=== PATIENT | male | born 1960 | race Caucasian/White ===

== ENCOUNTER 2018-12-08 20:32 | Emergency (ER) | payer SELFPAY ==
[2018-12-08] MEDS ORDERED: Albuterol 0.5% CONC NEB.SOL* 5 MG/ML 20 ml BOT INH ONE ×2 (20:41→22:42)
[2018-12-08] MEDS ORDERED: methylPREDNISolone 125 MG* 2 ML VIAL IV ONE (20:41)
[2018-12-08] MEDS ORDERED: Albuterol 0.5% CONC NEB.SOL* 5 MG/ML 20 ml BOT ONE (20:43)
--- NOTE | 2018-12-08 20:47 | ED ---
Shortness of Breath - HPI Summary HPI Summary: A 58 y/o male presents to [facility] with a chief complaint of SOB. The patient has a Hx of COPD and has been using a nebulizer, but he reports that past three days it has not helped alleviate his symptoms. He reports a nonproductive cough and denies fever. Pt is a smoker who is trying to quit, reporting that he smoked 2 or 3 cigarettes this week. He is from [place] and has been visiting a friend in [place] this week. He is on albuterol. - History of Current Complaint Chief Complaint: EDShortnessOfBreath Time Seen by Provider: 12/08/18 20:38 Hx Obtained From: Patient Onset/Duration: Sudden Onset, Lasting Days, Still Present Timing: Constant Current Severity: Mild Dyspnea At: Rest Aggrevating Factors: Nothing Alleviating Factors: Nothing Associated Signs & Symptoms: Negative - fever, Cough (Nonproductive) - Allergy/Home Medications Allergies/Adverse Reactions: Allergies Allergy/AdvReac Type Severity Reaction Status Date / Time codeine Allergy Hives Verified 12/08/18 20:43 Home Medications: Home Medications Albuterol/Ipratropium NEB.MICA* [Duoneb (Albuterol 2.5 MG/Ipratropium 0.5 MG)] 1 neb INH Q4H PRN 12/08/18 [History Confirmed 12/08/18] PMH/Surg Hx/FS Hx/Imm Hx Respiratory History: Reports: Hx Chronic Obstructive Pulmonary Disease (COPD) Infectious Disease History: No Infectious Disease History: Denies: Traveled Outside the US in Last 30 Days - Family History Known Family History: Negative: Blood Disorder - Social History Alcohol Use: None Hx Substance Use: No Substance Use Type: Reports: None Hx Tobacco Use: Yes Smoking Status (MU): Current Every Day Smoker Review of Systems Negative: Fever Positive: Shortness Of Breath, Cough All Other Systems Reviewed And Are Negative: Yes Physical Exam - Summary Physical Exam Summary: Appearance: Well-appearing, slender male sitting forward in mild respiratory distress. Skin: Warm, dry, no obvious rash Eyes: sclera anicteric, no conjunctival pallor ENT: mucous membranes moist, pharynx appears normal Neck: Supple, nontender Respiratory: Diffuse expiratory wheezing with markedly diminished aeration Cardiovascular: Normal S1, S2. No murmurs. Normal distal pulses in tibial and radial bilaterally. Abdomen: Soft, nontender, normal active bowel sounds present Musculoskeletal: Normal, Strength/ROM Intact Neurological: A&Ox3, awake and alert, mentation is normal, speech is fluent and appropriate Psychiatric: affect is normal, does not appear anxious or depressed Triage Information Reviewed: Yes Vital Signs On Initial Exam: Initial Vitals Temp Pulse Resp BP Pulse Ox 98.3 F 97 24 164/102 93 12/08/18 20:35 12/08/18 20:35 12/08/18 20:35 12/08/18 20:35 12/08/18 20:35 Vital Signs Reviewed: Yes Diagnostics - Vital Signs Vital Signs Temp Pulse Resp BP Pulse Ox 12/08/18 20:35 98.3 F 97 24 164/102 93 - Laboratory Result Diagrams: 12/08/18 21:27 12/08/18 21:27 Lab Statement: Any lab studies that have been ordered have been reviewed, and results considered in the medical decision making process. - Radiology CXR Radiology Interpretation Completed By: ED Physician Summary of Radiographic Findings: Typical findings of advanced COPD but no acute process. Pending official imaging report. - EKG 20:48 Cardiac Rate: NL - 92 bpm EKG Rhythm: Sinus Rhythm Summary of EKG Findings: NSR at 92 BPM, P waves, QRS complex, and T waves are within normal limits, T waves and intervals are normal, no ischemic changes. This is a normal EKG. Re-Evaluation - Re-Evaluation First Eval Change: Improved - Pt feels better, has improved aeration. Will continue with neb treatments. Course/Dx - Course Course Of Treatment: A 58 y/o male presents to [facility] with a chief complaint of SOB. The patient has a Hx of COPD and has been using a nebulizer, but he reports that past three days it has not helped alleviate his symptoms. He reports a nonproductive cough and denies fever. Pt is a smoker who is trying to quit, reporting that he smoked 2 or 3 cigarettes this week. He is from [place] and has been visiting a friend in [place] this week. He is on albuterol. Bloodwork and chemistries obtained and WNL. EKG at 20:48 showed NSR at 92 BPM, P waves, QRS complex, and T waves are within normal limits, T waves and intervals are normal, no ischemic changes. This is a normal EKG. In the ED course the patient was given Xanax PO. The patient will be discharged with a prescription for Prednisione. The patient is agreeable with this plan. - Diagnoses Provider Diagnoses: COPD with exacerbation Discharge - Sign-Out/Discharge Documenting (check all that apply): Patient Departure - DC Patient Received Moderate/Deep Sedation with Procedure: No - Discharge Plan Condition: Improved Disposition: HOME Prescriptions: predniSONE [Prednisone 20 MG TAB] 40 mg PO DAILY 5 Days #10 tablet Patient Education Materials: How to Stop Smoking (ED), COPD (Chronic Obstructive Pulmonary Disease) (ED) Referrals: [facility] REFERRAL [Outside] - Billing Disposition and Condition Condition: IMPROVED Disposition: Home - Attestation Statements Document Initiated by Scribe: Yes Documenting Scribe: Addy Santos Provider For Whom Miriam is Documenting (Include Credential): Jonathon Khalil MD Scribe Attestation: Addy Olea scribed for Jonathon Khalil MD on 12/10/18 at 1258. Scribe Documentation Reviewed: Yes Provider Attestation: The documentation as recorded by the Addy lynch accurately reflects the service I personally performed and the decisions made by Jonathon lou MD Status of Scribe Document: Viewed
[2018-12-08 21:36] LABS: ABS Basophils 0.2 10^3/ul (0-0.2); ABS Eosinophils 1.3 10^3/ul (0-0.6); ABS Lymphocytes 2.5 10^3/ul (1.0-4.8); ABS Monocytes 1.2 10^3/ul (0-0.8); ABS Neutrophils 5.4 10^3/ul (1.5-7.7); ABS Nucleated RBC 0 10^3/ul; Eosinophil % 12.3 %; Hematocrit 41 % (36-46); Hemoglobin 13.5 g/dL (14.0-18.0); Lymphocyte % 23.8 %; Mean Corpuscular HGB Conc 33 g/dL (31-36); Mean Corpuscular Hemoglobin 30 pg (27-31); Mean Corpuscular Volume 90 fL (80-94); Mean Platelet Volume 8.2 fL (7.4-10.4); Nucleated Red Blood Cells % 0; Platelet Count 292 10^3/uL (150-450); Red Blood Count 4.55 10^6 /uL (4.18-5.48); Red Cell Distribution Width 15 % (10.5-15); White Blood Count 10.7 10^3/uL (3.5-10.8)
[2018-12-08 21:51] LABS: Albumin 4.3 g/dL (3.2-5.2); Albumin/Globulin Ratio 1.5 (1-3); BUN/Creatinine Ratio 17.3 (8-20); Calcium 9.2 mg/dL (8.6-10.3); EGFR African American 95.4 (>60); EGFR Non-African American 78.8 (>60); Globulin 2.9 g/dL (2-4); Potassium 4.1 mmol/L (3.5-5.0); Total Bilirubin 0.2 mg/dL (0.2-1.0); Total Protein 7.2 g/dL (6.4-8.9)
[2018-12-09 00:55] VITALS: BP 122/57
== END 2018-12-09 01:32 | disposition home or self-care (01) ==
LOC: ED 20:32
DX: J44.1 Chronic obstructive pulmonary disease with (acute) exacerbation (principal); R05 Cough; Z88.5 Allergy status to narcotic agent; F17.200 Nicotine dependence, unspecified, uncomplicated
CPT/HCPCS: 36415; 71046; 80053; 83605; 84484; 85025; 87040; 93005; 96374; 99283; J2930; J7611

== ENCOUNTER 2018-12-14 06:12 | Emergency (ER) | payer SELFPAY ==
[2018-12-14] MEDS ORDERED: Albuterol/Ipratropium NEB.SOL* Albuterol 2.5 MG/Ipratropium 0.5 MG 3 ML ONE (06:34)
[2018-12-14] MEDS ORDERED: methylPREDNISolone 125 MG* 2 ML VIAL IV ONE (06:34)
[2018-12-14] MEDS ORDERED: Albuterol/Ipratropium NEB.SOL* Albuterol 2.5 MG/Ipratropium 0.5 MG 3 ML INH ONE (06:34)
--- NOTE | 2018-12-14 06:40 | ED ---
Shortness of Breath - HPI Summary HPI Summary: Patient is a 58-year-old male who presents emergency department for shortness of breath times one day. Patient states is a history of COPD and asthma. 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 Patient states that he is visiting a friend and resides in [place]. Patient was seen in the ER 6 days ago for similar symptoms and was placed on a course of prednisone. Patient states he ran out of his albuterol solution for his nebulizer and became very short of breath through the night. Patient denies chest pain, productive cough, fever. Symptoms are moderate in severity. Activities make symptoms worse. Nothing makes symptoms better. - History of Current Complaint Chief Complaint: EDShortnessOfBreath Time Seen by Provider: 12/14/18 06:31 Hx Obtained From: Patient - Allergy/Home Medications Allergies/Adverse Reactions: Allergies Allergy/AdvReac Type Severity Reaction Status Date / Time codeine Allergy Hives Verified 12/14/18 06:24 PMH/Surg Hx/FS Hx/Imm Hx Previously Healthy: Yes Respiratory History: Reports: Hx Chronic Obstructive Pulmonary Disease (COPD) Infectious Disease History: No Infectious Disease History: Denies: Traveled Outside the US in Last 30 Days - Family History Known Family History: Positive: Non-Contributory Negative: Blood Disorder - Social History Occupation: Unemployed Lives: With Family Alcohol Use: None Hx Substance Use: No Substance Use Type: Reports: Marijuana Hx Tobacco Use: Yes Smoking Status (MU): Former Smoker Review of Systems Constitutional: Negative Negative: Fever, Chills ENT: Negative Cardiovascular: Negative Negative: Palpitations, Chest Pain Positive: Shortness Of Breath, Cough Gastrointestinal: Negative Neurological: Negative All Other Systems Reviewed And Are Negative: Yes Physical Exam Triage Information Reviewed: Yes Vital Signs On Initial Exam: Initial Vitals Temp Pulse Resp BP Pulse Ox 98.6 F 78 20 138/86 92 12/14/18 06:20 12/14/18 06:20 12/14/18 06:20 12/14/18 06:20 12/14/18 06:20 Vital Signs Reviewed: Yes Appearance: Positive: Thin - Pt. sitting on side of bed, appears in mild respiratory distress Skin: Positive: Warm, Dry Head/Face: Positive: Normal Head/Face Inspection Eyes: Positive: Normal, EOMI, SANKET Neck: Positive: Supple Respiratory/Lung Sounds: Positive: Other - Dimished breath sounds with diffuse inspiratory wheeze Cardiovascular: Positive: Normal, RRR Musculoskeletal: Positive: Normal, Strength/ROM Intact Neurological: Positive: Normal, CN Intact II-III Psychiatric: Positive: Affect/Mood Appropriate Diagnostics - Vital Signs Vital Signs Temp Pulse Resp BP Pulse Ox 12/14/18 06:20 98.6 F 78 20 138/86 92 - Laboratory Lab Statement: Any lab studies that have been ordered have been reviewed, and results considered in the medical decision making process. Course/Dx - Course Course Of Treatment: Pt. presenting for cough and wheeze. Afebrile. O2 saturation is 92% on RA. He appears in mild respiratory distress. Pt. started on duoneb. Pt. declines cxr and blood work stating he had test done a week ago and just wants a rx. After duoneb and steroid pt. states he is feeling much better and is back to his baseline. Pt. was ambulated on pulse ox and stayed at 91%. Pt. requesting dc with rx for albuterol. Will place on anther 5 days of prednisone. Pt. given info for [facility] for f.u. To return to ER if sxs change or worsen. - Diagnoses Differential Diagnosis/HQI/PQRI: Positive: Asthma, Bronchitis, COPD Exacerbation , [place], Pneumonia, Pulmonary Edema Provider Diagnoses: COPD exacerbation Discharge - Sign-Out/Discharge Documenting (check all that apply): Patient Departure Patient Received Moderate/Deep Sedation with Procedure: No - Discharge Plan Condition: Improved Disposition: HOME Prescriptions: Albuterol/Ipratropium NEB.MICA* [Duoneb (Albuterol 2.5 MG/Ipratropium 0.5 MG)] 1 neb INH Q6H PRN #30 neb.mica PRN Reason: Wheezing predniSONE TAB* [Deltasone 20 MG TAB*] 40 mg PO DAILY #10 tab Patient Education Materials: COPD (Chronic Obstructive Pulmonary Disease) (ED) Referrals: [facility] [Outside] Additional Instructions: Schedule a follow up appointment with the [facility] Medication as directed Avoid smoking Return to ER if symptoms change or worsen - Billing Disposition and Condition Condition: IMPROVED Disposition: Home
[2018-12-14 07:48] VITALS: BP 120/79
== END 2018-12-14 07:48 | disposition home or self-care (01) ==
LOC: ED 06:12
DX: J44.1 Chronic obstructive pulmonary disease with (acute) exacerbation (principal); Z87.891 Personal history of nicotine dependence
CPT/HCPCS: 96374; 99283; A9270-GY; J2930

== ENCOUNTER 2019-01-06 13:24 | Emergency (ER) | payer SELFPAY ==
[2019-01-06] MEDS ORDERED: Albuterol/Ipratropium NEB.SOL* Albuterol 2.5 MG/Ipratropium 0.5 MG 3 ML INH ONE (15:04)
--- NOTE | 2019-01-06 15:06 | ED ---
Respiratory - HPI Summary HPI Summary: This patient is a 58 year old male presenting to [facility] with a chief complaint of medication refill. The patient has a Hx of COPD and has run out of albuterol. The patient states he has been slightly SOB and wheezing. Patient refuses bloodwork, states he is just here to get his medication refilled. - History of Current Complaint Chief Complaint: EDShortnessOfBreath Stated Complaint: SOB PER PT Time Seen by Provider: 01/06/19 14:58 Hx Obtained From: Patient Initial Severity: Mild Pain Intensity: 0 Character: Wheezing, Dyspnea at Rest Associated Signs and Symptoms: SOB, Wheezing - Allergy/Home Medications Allergies/Adverse Reactions: Allergies Allergy/AdvReac Type Severity Reaction Status Date / Time codeine Allergy Hives Verified 01/06/19 13:42 PMH/Surg Hx/FS Hx/Imm Hx Respiratory History: Reports: Hx Chronic Obstructive Pulmonary Disease (COPD) Infectious Disease History: No Infectious Disease History: Denies: Traveled Outside the US in Last 30 Days - Family History Known Family History: Positive: Non-Contributory Negative: Blood Disorder - Social History Alcohol Use: None Hx Substance Use: No Substance Use Type: Reports: Marijuana Hx Tobacco Use: Yes Smoking Status (MU): Former Smoker Review of Systems Negative: Fever Positive: Shortness Of Breath - wheezing All Other Systems Reviewed And Are Negative: Yes Physical Exam - Summary Physical Exam Summary: VITAL SIGNS: Reviewed. GENERAL: Patient is a well-developed and nourished Male who is lying comfortable in the stretcher. Patient is not in any acute respiratory distress. Patient refuses bloodwork. HEAD AND FACE: No signs of trauma. No ecchymosis, hematomas or skull depressions. No sinus tenderness. EYES: PERRLA, EOMI x 2, No injected conjunctiva, no nystagmus. EARS: Hearing grossly intact. Ear canals and tympanic membranes are within normal limits. MOUTH: Oropharynx within normal limits. NECK: Supple, trachea is midline, no adenopathy, no JVD, no carotid bruit, no c- spine tenderness, neck with full ROM. CHEST: Symmetric, no tenderness at palpation LUNGS: Clear to auscultation bilaterally. Diffusely wheezing or crackles. CVS: Regular rate and rhythm, S1 and S2 present, no murmurs or gallops appreciated. ABDOMEN: Soft, non-tender. No signs of distention. No rebound no guarding, and no masses palpated. Bowel sounds are normal. EXTREMITIES: FROM in all major joints, no edema, no cyanosis or clubbing. NEURO: Alert and oriented x 3. No acute neurological deficits. Speech is normal and follows commands. SKIN: Dry and warm IF PSYCHIATRIC/MENTAL HEALTH ADD THE FOLLOWING TO THE GENERAL NML EXAM: PSYCH: Depressed, quiet, and denies any suicidal thoughts or plan. No homicidal thoughts or plan. No signs of psychosis or pressure speech. No tangential speech. Triage Information Reviewed: Yes Vital Signs On Initial Exam: Initial Vitals Temp Pulse Resp BP Pulse Ox 97.4 F 76 19 140/94 97 01/06/19 13:42 01/06/19 13:42 01/06/19 13:42 01/06/19 13:42 01/06/19 13:42 Vital Signs Reviewed: Yes Diagnostics - Vital Signs Vital Signs Temp Pulse Resp BP Pulse Ox 01/06/19 13:42 97.4 F 76 19 140/94 97 - Laboratory Lab Statement: Any lab studies that have been ordered have been reviewed, and results considered in the medical decision making process. Disposition - Course Assessment/Plan: This patient is a 58-year-old male who presents to the emergency department with a chief complaint of shortness of breath. The patient has history of COPD and the result when he is here is to get a refill medications for DuoNebs. He has no other complaints, denies any chest pain denies any fevers denies any cough. Patient is from [place] and he doesnt have a primary care physician in this area. The physical exam the patient is diffusely wheezing therefore he was given 1 DuoNeb. He declined any blood work and a chest x-ray showed that the patient has hyperinflated lungs consistent with COPD. After the DuoNeb the patient is feeling better and he requested to be discharged home. The patient is hemolyticus stable alert and oriented 3. He will be referred to a primary care physician in the [facility] group. - Diagnoses Provider Diagnoses: COPD exacerbation, Medication refill Discharge - Sign-Out/Discharge Documenting (check all that apply): Patient Departure - Discharge Patient Received Moderate/Deep Sedation with Procedure: No - Discharge Plan Condition: Stable Disposition: HOME Prescriptions: Albuterol/Ipratropium NEB.MICA* [Duoneb (Albuterol 2.5 MG/Ipratropium 0.5 MG)] 1 neb INH Q6H PRN #30 neb.mica PRN Reason: Wheezing Patient Education Materials: Medicine Refill (ED) Referrals: [facility] REFERRAL [Outside] Additional Instructions: Return to ED with any new or worsening symptoms. - Billing Disposition and Condition Condition: STABLE Disposition: Home - Attestation Statements Document Initiated by Scribe: Yes Documenting Scribe: Montez Rice Provider For Whom Scribe is Documenting (Include Credential): Lior Linares MD Scribe Attestation: Mnotez Olea, scribed for Lior Linares MD on 01/06/19 at 2103. Scribe Documentation Reviewed: Yes Provider Attestation: The documentation as recorded by the Montez lynch accurately reflects the service I personally performed and the decisions made by Lior lou MD Status of Scribe Document: Viewed
[2019-01-06 15:30] VITALS: BP 138/88
== END 2019-01-06 15:28 | disposition home or self-care (01) ==
LOC: ED 13:24
DX: Z76.0 Encounter for issue of repeat prescription (principal); J44.1 Chronic obstructive pulmonary disease with (acute) exacerbation; Z87.891 Personal history of nicotine dependence
CPT/HCPCS: 71046; 93005; 99282; A9270-GY